=== PATIENT | female | born 1965 | race Two or more races ===

== ENCOUNTER 2022-11-25 11:40 | Emergency (ER) | payer OTHER ==
[~2022-11-25] VITALS: Ht 162.6 cm; Wt 78.9 kg
[2022-11-25] MEDS ORDERED: ORPHENADRINE C100 MG PO (15:07)
[2022-11-25] MEDS ORDERED: KETO10TA2 PO (15:07)
== END 2022-11-25 15:27 | disposition home or self-care (01) ==
LOC: ER 11:40
DX: M54.2 Cervicalgia (principal)

== ENCOUNTER 2023-12-28 02:42 | Emergency (ER) | payer OTHER ==
[~2023-12-28] VITALS: Ht 157.5 cm; Wt 72.6 kg
[~2023-12-28 02:42] MED LIST: KETO10TA2 PO; ORPHENADRINE C100 MG PO
[2023-12-28] MEDS ORDERED: KETOROLAC TROMETHAMINE 10 MG TABLET PO STA (03:50)
[2023-12-28] MEDS ORDERED: DOLOGESIC-DF 51 EACH PO (05:01)
== END 2023-12-28 05:09 ==
LOC: ER 02:42
DX: S00.03XA Contusion of scalp, initial encounter (principal); S80.12XA Contusion of left lower leg, initial encounter; W18.30XA Fall on same level, unspecified, initial encounter; Y93.9 Activity, unspecified; Y92.59 Other trade areas as the place of occurrence of the external cause; Y99.9 Unspecified external cause status

== ENCOUNTER 2024-11-08 19:56 | Emergency (ER) | payer OTHER ==
[~2024-11-08] VITALS: Ht 162.6 cm; Wt 77.1 kg
[~2024-11-08 19:56] MED LIST changes: +DOLOGESIC-DF 51 EACH PO
[2024-11-08 22:39] VITALS: BP 142/88; O2SAT 97
[2024-11-08] MEDS ORDERED: FAMOTIDINE/PF 20 MG in 0.9 % SODIUM CHLORIDE 8 ML IV PUSH STA (23:00)
[2024-11-08] MEDS ORDERED: 0.9 % SODIUM CHLORIDE 1,000 ML IV SCH (23:00)
[2024-11-08] MEDS ORDERED: KETOROLAC TROMETHAMINE 30 MG VIAL IV ONE (23:15)
[2024-11-08] MEDS ORDERED: CEFTRIAXONE SODIUM 1,000 MG VIAL IV ONE (23:15)
[2024-11-08] MEDS ORDERED: FAMOTIDINE/PF 20 MG/2 ML VIAL ONE (23:25)
[2024-11-08] MEDS ORDERED: KETOROLAC TROMETHAMINE 30 MG VIAL ONE (23:25)
[2024-11-08] MEDS ORDERED: CEFTRIAXONE SODIUM 1,000 MG VIAL ONE (23:26)
[2024-11-08 23:59] LABS: HEMATOCRIT 32.4 % (36.0-45.00); MEAN CORPUSCULAR HGB CONC 31.9 g/dl (32.0-36.0); PLATELET COUNT 294 K/uL (150-450); RED BLOOD COUNT 4.96 M/uL (4.00-6.00); RED CELL DISTRIBUTION WIDTH 15.2 % (11.5-14.5)
[2024-11-09] LABS: HEMOGLOBIN 10.3 g/dL (12.0-15.00); MEAN CELL VOLUME 65.3 fL (80.00-100.00); MEAN CORPUSCULAR HEMOGLOBIN 20.7 pg (27.00-32.0)
[2024-11-09 00:31] LABS: ALBUMIN 3.5 gm/dL (3.4-5.0); BILIRUBIN TOTAL 0.93 mg/dL (0.3-1.2); CALCIUM 8.8 mg/dL (8.5-10.1); CREATININE SERUM 0.59 mg/dL (0.55-1.02); GFR 103.62; GLOBULINA 4.3 G/DL (2.4-3.5); POTASSIUM 4.42 mEq/L (3.5-5.1); TOTAL PROTEIN 7.8 gm/dL (6.4-8.2)
[2024-11-09 01:56] LABS: URINE APPEARANCE Clear; URINE BILIRRUBIN Negative (NEGATIVE); URINE BLOOD Negative; URINE COLOR Yellow; URINE GLUCOSE Negative (NEGATIVE); URINE KETONE Negative (NEGATIVE); URINE LEUKOCYTE Negative; URINE NITRATE Negative; URINE PROTEIN Negative (NEGATIVE); URINE UROBILINOGEN 0.2 E.U./dl
[2024-11-09 02:00] LABS: URINE BACTERIA 12.2 uL (0.0-1933); URINE RBC 3.6 uL (0.0-20.8); URINE WBC 3.7 uL (0.0-23.2)
== END 2024-11-09 04:54 | disposition home or self-care (01) ==
LOC: ER 19:58
PROVIDERS: General Practice
DX: R10.32 Left lower quadrant pain (principal); K57.32 Diverticulitis of large intestine without perforation or abscess without bleeding; Z91.013 Allergy to seafood; I10 Essential (primary) hypertension